=== PATIENT | female | born 1945 | race Caucasian/White ===

== ENCOUNTER → 2020-10-03 | Outpatient (CLI) | payer MEDICARE ==
--- NOTE | 2020-10-03 15:56 | DEXA ---
INDICATION: Z78.0 ASYMPTOMATIC MENOPAUSAL STATE. COMPARISON: None. TECHNIQUE: Bone density was measured using dual-energy x-ray absorptionmetry (DEXA). FINDINGS: AP SPINE L1-L2 BMD 1.347 g/cm2 Young Adult T-Score 1.4 Age Matched Z-Score 3.2. LT FEMUR, TOTAL BMD 0.959 g/cm2 Young Adult T-Score -0.4 Age Matched Z-Score 1.5. LT NECK BMD 0.891 g/cm2 Young Adult T-Score -1.1 Age Matched Z-Score 1.0. RT FEMUR, TOTAL BMD 0.883 g/cm2 Young Adult T-Score -1.0 Age Matched Z-Score 0.9. RT NECK BMD 0.834 g/cm2 Young Adult T-Score -1.5 Age Matched Z-Score 0.6. IMPRESSION: There is normal bone density of the spine. There is a levoconvex lumbar scoliosis. L3 through L5 fusion hardware bilaterally. There is low bone density of the left hip. There is low bone density of the right hip. FOLLOW-UP: Recommendation for the next bone density exam: 2 years. <Electronically signed by Maxwell Poe > 10/03/20 [id number]
== END ==
LOC: M WHC 13:57
PROVIDERS: ATTEND Internal Medicine
DX: M85.851 Other specified disorders of bone density and structure, right thigh (principal); M85.852 Other specified disorders of bone density and structure, left thigh; Z98.1 Arthrodesis status; M41.9 Scoliosis, unspecified

== ENCOUNTER → 2020-10-09 | Outpatient (REF) | payer MEDICARE ==
[2020-10-09 17:12] LABS: CALCIUM LEVEL 9.4 MG/DL (8.8-10.2); MAGNESIUM LEVEL 2.3 MG/DL (1.8-2.4); PHOSPHORUS LEVEL 3.5 MG/DL (2.5-4.9); THYROID STIMULATING HORMONE 1.87 uIU/ML (0.358-3.740); TOTAL 25(OH) VITAMIN D 55.9 NG/ML (30.0-100.0)
== END ==
LOC: M SFHCRHEU 12:12
PROVIDERS: ATTEND Internal Medicine
DX: M11.20 Other chondrocalcinosis, unspecified site (principal); D64.9 Anemia, unspecified; M85.80 Other specified disorders of bone density and structure, unspecified site
CPT/HCPCS: 82306; 82310; 82728; 83550; 83735; 83970; 84100; 84443; G0463

== ENCOUNTER → 2021-03-16 | Outpatient (REF) | payer MEDICARE | LOC: M SFHCRHEU 11:22 | PROVIDERS: ATTEND Internal Medicine | DX: M06.4 Inflammatory polyarthropathy (principal) | CPT/HCPCS: 85652; 86140; G0463 ==

== ENCOUNTER → 2021-07-16 | Outpatient (REF) | payer MEDICARE ==
[2021-07-16 17:30] LABS: PERCENT SATURATION 17.9 % (13.2-45.0)
== END ==
LOC: M SFHCRHEU 12:01
PROVIDERS: ATTEND Internal Medicine
DX: D50.9 Iron deficiency anemia, unspecified (principal)
CPT/HCPCS: 82728; 83550; G0463

== ENCOUNTER → 2021-08-13 | Outpatient (CLI) | payer MEDICARE ==
--- NOTE | 2021-08-15 17:04 | SLEEPHOME ---
DATE: 08/13/2021 ORDERED BY: Dr. Jennifer Yung Diagnostic home sleep testing was performed due to concern for the obstructive sleep apnea syndrome in this patient with a history of chronic fatigue. For testing, a NIOX T3 respiratory monitoring device was used. Continuous record was made of pulse, oxygen saturation, air flow, chest and abdominal strain, and body position. There was 9 hours and 59 minutes of data reviewed. There was 8 hours and 33 minutes marked as time in bed. During the interval marked time in bed, there were 114 respiratory events identified of 10 seconds in duration or greater for a respiratory event index of 13.3. The events were primarily obstructive. Eleven mixed and central apneas were noted. Baseline pulse rate 68. Pulse rate 60-94. Baseline saturation 93%. Saturations fell to 80%, and testing was performed in both the supine and nonsupine positions. IMPRESSION: Abnormal home sleep testing with repetitive respiratory events and oxygen desaturations to 80% with a respiratory event index of 13.3 is consistent with the obstructive sleep apnea syndrome. RECOMMENDATION: The patient should be encouraged to undergo formal sleep evaluation.
== END ==
LOC: M SLEEP HO 11:29
PROVIDERS: ATTEND Internal Medicine
DX: G47.33 Obstructive sleep apnea (adult) (pediatric) (principal); R53.83 Other fatigue